=== PATIENT | female | born 1960 | race Caucasian/White ===

== ENCOUNTER 2018-04-27 13:44 | Day surgery (SDC) | payer BC ==
[2018-04-20 12:21] LABS: BASOPHILS % (AUTO) 0.3 % (0-1); EOSINOPHILS % (AUTO) 0.4 % (0-6); HEMATOCRIT 44.7 % (35.0-45.0); HEMOGLOBIN 15.2 g/dl (12.0-16.0); LYMPHOCYTES % (AUTO) 25.4 % (21-51); MEAN CORPUSCULAR HEMOGLOBIN 33.1 PG (27.0-31.0); MEAN CORPUSCULAR HGB CONC 34.1 % (33.0-36.5); MEAN CORPUSCULAR VOLUME 97.2 FL (78-98); MONOCYTES # (AUTO) 0.5 X10'3 (0-0.9); MONOCYTES % (AUTO) 6.9 % (2-12); NEUTROPHILS # (AUTO) 5.3 X10'3 (1.8-7.7); PLATELET COUNT 262 X10'3 (140-440); WHITE BLOOD COUNT 7.9 X10'3 (4.5-11.0)
[2018-04-20 12:31] LABS: INR 1.1 INR; PARTIAL THROMBOPLASTIN TIME 26 SECONDS (22-32); PROTHROMBIN TIME 11.2 SECONDS (9.0-12.0)
[2018-04-20 12:39] LABS: ALBUMIN 3.8 G/DL (3.4-5.0); ANION GAP 9 (8-16); BLOOD UREA NITROGEN 20 MG/DL (7-18); CALCIUM 9.3 MG/DL (8.5-10.1); CHLORIDE 104 MMOL/L (99-107); CREATININE 1.05 MG/DL (0.40-0.90); GLUCOSE 109 MG/DL (70-104); POTASSIUM 4.3 MMOL/L (3.5-5.1); SODIUM 139 MMOL/L (135-145); TOTAL CARBON DIOXIDE 25.8 MMOL/L (24-32); eGFR 54 ML/MIN
[~2018-04-27] VITALS: Ht 170.2 cm; Wt 79.3 kg
[2018-04-27] VITALS (13 sets, daily range): BP systolic 107–135; BP diastolic 73–95
[2018-04-27] MEDS ORDERED: fentaNYL/PF 50MCG/1 ML 2ML syringe IV ONE (14:10)
[2018-04-27] MEDS ORDERED: MIDAZolam 5mg/ml 2ml vial IV ONE (14:10)
[2018-04-27] MEDS ORDERED: MAGN400C PO (14:27)
[2018-04-27] MEDS ORDERED: MULT-38 PO (14:27)
[2018-04-27] MEDS ORDERED: SOTA80TA73 PO (14:27)
[2018-04-27] MEDS ORDERED: IBUP-2417 PO (14:27)
[2018-04-27] MEDS ORDERED: FLUT16SP2 BOTHNARES (14:27)
[2018-04-27] MEDS ORDERED: PER10325T PO (14:27)
[2018-04-27] MEDS ORDERED: ALBU18HF2 INH (14:27)
[2018-04-27] MEDS ORDERED: RIVA20TA PO (14:27)
[2018-04-27] MEDS ORDERED: BECL7.3A INH (14:27)
[2018-04-27] MEDS ORDERED: ASPI81TA52 PO (14:27)
[2018-04-27] MEDS ORDERED: GABA600T2 PO (14:27)
[2018-04-27] MEDS ORDERED: normal saline 1000ml 1,000 ML IV SCH (15:30)
== END 2018-04-27 19:05 | disposition home or self-care (01) ==
LOC: SSTAY O 13:44
PROVIDERS: ATTEND Internal Medicine Interventional Cardiology
DX: I48.0 Paroxysmal atrial fibrillation (principal); G47.33 Obstructive sleep apnea (adult) (pediatric); J45.998 Other asthma; Z88.5 Allergy status to narcotic agent; Z88.6 Allergy status to analgesic agent; Z79.891 Long term (current) use of opiate analgesic; Z79.1 Long term (current) use of non-steroidal anti-inflammatories (NSAID); Z72.89 Other problems related to lifestyle; Z79.82 Long term (current) use of aspirin; Z88.8 Allergy status to other drugs, medicaments and biological substances; Z98.890 Other specified postprocedural states; Z79.899 Other long term (current) drug therapy
CPT/HCPCS: 36415; 80048; 85025; 85610; 85730; 92960; 93005; 94760; J2250; J3010; J7030; A4620